=== PATIENT | male | born 1945 | race Caucasian/White ===

== ENCOUNTER 2021-06-08 10:04 | Emergency (ER) | payer MEDICARE ==
[2021-06-08] MEDS ORDERED: Boostrix 0.5 ML (Tdap) VIAL ONE (10:55)
[2021-06-08] MEDS ORDERED: Sulfameth/Trimethoprim DS 800-160mg TAB ONE (10:55)
[2021-06-08] MEDS ORDERED: Bacitracin 1 PK ONE (11:11)
== END 2021-06-08 11:25 | disposition home or self-care (01) ==
LOC: NAV ERS 10:04
DX: S61.211A Laceration without foreign body of left index finger without damage to nail, initial encounter (principal); Z23 Encounter for immunization; W26.8XXA Contact with other sharp object(s), not elsewhere classified, initial encounter
CPT/HCPCS: 90471; 90715

== ENCOUNTER 2023-12-18 19:22 | Emergency (ER) | payer MEDICARE ==
[2023-12-18] MEDS ORDERED: Naproxen 500 MG TAB ONE (19:37)
== END 2023-12-18 20:32 | disposition home or self-care (01) ==
LOC: NAV ERS 19:22
DX: S52.502A Unspecified fracture of the lower end of left radius, initial encounter for closed fracture (principal); S52.612A Displaced fracture of left ulna styloid process, initial encounter for closed fracture; W01.0XXA Fall on same level from slipping, tripping and stumbling without subsequent striking against object, initial encounter; Y99.0 Civilian activity done for income or pay
CPT/HCPCS: 29105